=== PATIENT | male | born 1965 | race Caucasian/White ===

== ENCOUNTER 2017-07-24 06:26 | Emergency (ER) | payer OTHER ==
[~2017-07-24] VITALS: Ht 180.3 cm; Wt 93.0 kg
[~2017-07-24 06:26] MED LIST: QUETIAPINE FUMA25 MG ORAL; ZOLOFT25 MG ORAL
[2017-07-24] MEDS ORDERED: Ketorolac 60mg Inj IM ONE (06:30)
[2017-07-24] MEDS ORDERED: NAPROSYN500 M1 ORAL (06:38)
--- NOTE | 2017-07-24 06:39 | Emergency Room Report ---
History of Present Illness General Chief Complaint: Upper Extremity Injury Source: Patient Present Illness HPI Is a 51-year-old male right-hand dominant. He presents with chief complaint of right shoulder pain and dislocation. He had previous surgery for rotator cuff repair. He said that since then he has multiple shoulder dislocation. It is hasn't happened for about several years now. This morning he was reaching in his closet for some clothes and he felt a pop out. He called 911 and by time he got here he said it popped back in her ready. He complained of some tenderness. Worse with movement. No other injury. Allergies: Coded Allergies: ACETAMINOPHEN (Verified Allergy, Unknown, 07/24/17) HYDROCODONE (Verified Allergy, Unknown, 07/24/17) Patient History Past Medical History: see triage record, old chart reviewed Past Surgical History: other Pertinent Family History: none Social History: Denies: drug use Immunizations: other Reviewed Nursing Documentation: PMH: Agreed, PSxH: Agreed Nursing Documentation-PMH Hx Hypertension: Yes Hx Cerebrovascular Accident: Yes - NO DEFICIT Review of Systems Eye: Denies: eye pain, blurred vision ENT: Denies: ear pain, nose congestion, throat swelling Respiratory: Denies: cough, shortness of breath Cardiovascular: Denies: chest pain, palpitations Gastrointestinal: Denies: abdominal pain, diarrhea, nausea, vomiting Musculoskeletal: Reports: joint pain, Denies: back pain Skin: Denies: rash Neurological: Denies: headache, numbness Endocrine: Denies: increased thirst, increased urine Hematologic/Lymphatic: Denies: easy bruising All Other Systems: negative except mentioned in HPI Physical Exam Vital Signs Date Time Temp Pulse Resp B/P (MAP) Pulse Ox O2 Delivery O2 Flow Rate FiO2 07/24/17 06:21 97.2 96 18 131/95 99 Room Air vitals normal Sp02 EP Interpretation: reviewed, normal General Appearance: well appearing, no apparent distress, alert Head: normocephalic, atraumatic Eyes: bilateral eye PERRL, bilateral eye EOMI ENT: hearing grossly normal, normal pharynx Neck: full range of motion, supple, no meningismus Respiratory: chest non-tender, lungs clear, normal breath sounds Cardiovascular #1: regular rate, rhythm, no murmur Gastrointestinal: normal bowel sounds, non tender, no mass, no organomegaly, no bruit, non-distended Musculoskeletal: back normal, gait/station normal, normal range of motion, other Neurologic: alert, oriented x3 Psychiatric: mood/affect normal Skin: warm/dry Procedures Splinting Splinting : Consent: Verbal Location: Shoulder Pre-Made Type: Sling Pre-Proc Neuro Vasc Exam: normal Post-Proc Neuro Vasc Exam: normal Patient Tolerated: Well Complications: None Medical Decision Making Diagnostic Impression: Primary Impression: Anterior shoulder dislocation Qualified Codes: S43.014A - Anterior dislocation of right humerus, initial encounter ER Course Patient presents with right shoulder recurrent dislocation and spontaneous reduction. X-ray shows subluxation of the joint but no dislocation or fracture. We'll discharge home. He may need more orthoscopic surgery. Other X-Ray Diagnostic Results Other X-Ray Diagnostic Results : X-Ray ordered: Right shoulder # of Views/Limited Vs Complete: 3 View Indication: Pain EP Interpretation: Yes Interpretation: no dislocation, no soft tissue swelling, no fractures Impression: Other - Subluxation of the humeral head, no dislocation. Electronically Signed by: Venu Mota MD Last Vital Signs Date Time Temp Pulse Resp B/P (MAP) Pulse Ox O2 Delivery O2 Flow Rate FiO2 07/24/17 06:21 97.2 96 18 131/95 99 Room Air Status: improved Disposition: HOME, SELF-CARE Condition: Stable Scripts Naproxen* (NAPROSYN*) 500 Mg Tablet 500 MG ORAL TWICE A DAY, #30 TAB Prov: VENU MOTA M.D. 07/24/17 Additional Instructions: Followup with your DrQuintin in 7 days. No strenuous activity with your right shoulder. You may need a referral to see an orthopedic Dr. Return if worse. VENU MOTA M.D. Jul 24, 2017 06:38
[2017-07-24 06:41] VITALS: BP 131/95
--- NOTE | 2017-07-24 10:07 | Diagnostic Imaging Report ---
Indication: PAIN Technique: 3 views of the right shoulder Comparison: none Findings: Density overlying the glenohumeral joint on the internal and external rotation views is not evident on the Y-view, presumably external to the patient. No acute fractures. No dislocations. Joint spaces are preserved. Impression:Negative
== END 2017-07-24 06:47 | disposition home or self-care (01) ==
LOC: EDBD 06:26 → EMR 06:33
DX: M24.411 Recurrent dislocation, right shoulder (principal); I10 Essential (primary) hypertension; Z88.6 Allergy status to analgesic agent; Z86.73 Personal history of transient ischemic attack (TIA), and cerebral infarction without residual deficits
CPT/HCPCS: 96372; 99283